=== PATIENT | female | born 1945 | race Caucasian/White ===

== ENCOUNTER 2020-07-22 13:38 | Outpatient (CLI) | payer MEDICARE, BC, SELFPAY ==
--- NOTE | ~2020-07-22 | DEXA_ITS ---
Bone Density Report Name: Kimberly Edmond Age: 75 Sex: Female Ethnicity: White Date of : 1945 Indication: osteopenia; height loss; Referring Provider: Anthony, Wilfredo Study: Bone densitometry was performed. Exam Date: July 22, 2020 Accession number: [id number] Bone Density: Region BMD T-score Z-score Classification AP Spine (L1, L3, L4) 0.810 -2.2 0.2 Osteopenia Femoral Neck (Left) 0.614 -2.1 0.0 Osteopenia Total Hip (Left) 0.751 -1.6 0.2 Osteopenia Total Hip Bilateral Avg 0.758 -1.5 0.3 Osteopenia Femoral Neck (Right) 0.661 -1.7 0.4 Osteopenia Total Hip (Right) 0.765 -1.4 0.3 Osteopenia World Health Organization criteria for BMD impression classify patients as: Normal (T-score at or above -1.0), Osteopenia (T-score between -1.0 and -2.5), or Osteoporosis (T-score at or below -2.5). 10-year Fracture Risk(1): Major Osteoporotic Fracture 13% Hip Fracture 3.2% Reported Risk Factors: [place] (), Neck BMD=0.614, BMI=33.1 (1) FRAX(R) Version 3.08. Fracture probability calculated for an untreated patient. Fracture probability may be lower if the patient has received treatment. Previous Exams: Region Exam Age BMD T-score BMD Change BMD Change Date g/cm2 vs Baseline vs Previous AP Spine(L1, L3, L4) 07/22/2020 75 0.810 -2.2 0.012(1.5%) -0.004(-0.5%) 10/25/2017 72 0.814 -2.2 0.016(2.0%) 0.016(2.0%) 05/30/2015 70 0.798 -2.3 Total Hip(Left) 07/22/2020 75 0.751 -1.6 -0.164(-17.9%) -0.116(-13.4%) 10/25/2017 72 0.868 -0.6 -0.048(-5.2%)* -0.048(-5.2%)* 05/30/2015 70 0.915 -0.2 Total Hip(Right) 07/22/2020 75 0.765 -1.4 -0.115(-13.1%) -0.065(-7.9%)* 10/25/2017 72 0.831 -0.9 -0.049(-5.6%)* -0.049(-5.6%)* 05/30/2015 70 0.880 -0.5 *Denotes significance at 95% confidence level, LSC for AP Spine = 0.022 g/cm2, LSC for Total Hip = 0.027 g/cm2 Clinical Information Provided by Patient: Has used the following medications: Vitamin D, Calcium Patient maximum height was 64 Menopause Age: 55 Drinks caffeinated beverages Onset of menses at age 13 Number of children 3 Impression: The patient has low bone mass, based on the Total Spine T-score. The patient has an estimated ten-year risk of hip fracture of 3.2% and an estimated ten-year risk of major fracture of 13%, based on the WHO FRAX algorithm. The BMD for the Total Hip(Left) decreased, changing by -13.4% since the last DXA exam. T
== END 2020-07-22 13:39 | disposition home or self-care (01) ==
LOC: ANHIMG 13:42
PROVIDERS: PCP Internal Medicine Infectious Disease; Visit Provider Physician Assistant
DX: M85.88 Other specified disorders of bone density and structure, other site (principal); M85.852 Other specified disorders of bone density and structure, left thigh; M85.851 Other specified disorders of bone density and structure, right thigh
CPT/HCPCS: 77080